=== PATIENT | male | born 1995 | race African-American/Black ===

== ENCOUNTER 2025-02-14 20:03 | Emergency (ER) | payer SELFPAY ==
[~2025-02-14] VITALS: Ht 177.8 cm; Wt 106.6 kg
[2025-02-14 20:45] VITALS: PULSE 76; RESP 19; TEMP 98.4
[2025-02-14] MEDS ORDERED: ACETAMINOPHEN 325 MG TAB ONE (20:54)
[2025-02-14] MEDS: ACETAMINOPHEN 325 MG TAB PO ONE (21:00)
[2025-02-14] MEDS ORDERED: NAPROSYN500 MG PO (23:29)
[2025-02-14] MEDS ORDERED: ORPHENADRINE C100 MG PO (23:29)
[2025-02-14 23:46] VITALS: BP 136/84; PULSE 64; RESP 17; TEMP 98.3; O2SAT 100
== END 2025-02-14 23:40 | disposition home or self-care (01) ==
LOC: ER 21:09
DX: S16.1XXA Strain of muscle, fascia and tendon at neck level, initial encounter (principal); R51.9 Headache, unspecified; V44.5XXA Car driver injured in collision with heavy transport vehicle or bus in traffic accident, initial encounter; Y92.411 Interstate highway as the place of occurrence of the external cause
CPT/HCPCS: 70450; 72125; 99283